=== PATIENT | female | born 1965 | race Caucasian/White ===

== ENCOUNTER 2019-12-24 07:37 | Outpatient (CLI) | payer OTHER, SELFPAY ==
--- NOTE | ~2019-12-24 | MM_ITS ---
EXAMINATION: MM screening umer BI w chuy HISTORY: Screening mammogram TECHNIQUE: Craniocaudal and mediolateral oblique 3-D tomosynthesis images were obtained and synthetic 2-D images were generated. CAD analysis was submitted and interpreted. COMPARISON: 11/23/2018, 11/17/2017, 11/11/2016 bilateral digital screening mammogram examinations BREAST PARENCHYMAL COMPOSITION: There are scattered areas of fibroglandular density. FINDINGS: There is no evidence of suspicious mass, calcification, or architectural distortion to sugg est malignancy in either breast. There has been no suspicious interval change. IMPRESSION: 1. No mammographic evidence of malignancy. 2. Recommend routine screening mammography in one year. BI-RADS Category 1: Negative Reviewed, dictated and finalized at location A.
== END 2019-12-24 07:38 | disposition home or self-care (01) ==
PROVIDERS: PCP Family Medicine; Visit Provider Nurse Practitioner Obstetrics & Gynecology
DX: Z12.31 Encounter for screening mammogram for malignant neoplasm of breast (principal)
CPT/HCPCS: 77063; 77067

== ENCOUNTER 2020-08-14 09:19 | Outpatient (CLI) | payer OTHER, SELFPAY ==
--- NOTE | 2020-08-17 13:57 | WPDPFTINT ---
PFT Interpretation This PFT met all criteria for ATS standards and reproducibility FEV/FVC post bronchodilator 82% FEV1 113% FVC 109% TLC 95% RV 52% RV/TLC 20% DLCO 80% when adjusted for alveolar volume but not adjusted for hemoglobin Flow volume loops were normal Impression: Normal PFT. Clinical correlation is advised.
== END 2020-08-14 09:20 | disposition home or self-care (01) ==
PROVIDERS: PCP Family Medicine; Visit Provider Family Medicine
DX: R06.00 Dyspnea, unspecified (principal)
CPT/HCPCS: 94060; 94726; 94729

== ENCOUNTER 2020-09-18 17:24 | Emergency (ER) | payer OTHER, SELFPAY ==
--- NOTE | ~2020-09-18 | XR_ITS ---
EXAMINATION: XR foot LT min 3V DATE: 09/18/2020 17:58 INDICATION: Bruising at the left great toe and metatarsal. TECHNIQUE: Dorsoplantar, two oblique and lateral views of the left foot were obtained. COMPARISON: None. FINDINGS: Alignment is normal. No fracture. Mild polyarticular osteoarthritis the forefoot at the first metatar sophalangeal and multiple interphalangeal joints. No cortical erosions or periosteal reaction. Small Achilles and plantar calcaneal spurs. Additional small enthesophyte at the tip the lateral malleolus. Soft tissue about the head of the first metatarsal. IMPRESSION: 1. 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 No acute osseous abnormality. Reviewed, dictated and finalized at location A. IMPRESSION: 1. 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 No acute osseous abn ormality.
[2020-09-18 17:40] VITALS: BP 137/82; PULSE 85; RESP 20; TEMP 36.7; O2SAT 100
--- NOTE | 2020-09-18 19:07 | ED.LOWEXIN ---
HPI - Extremity Injury (Lower) General Chief Complaint: Extremity Injury, Lower Stated Complaint: left foot injury Time Seen by Provider: 09/18/20 18:35 Source: patient Mode of arrival: ambulatory Limitations: no limitations History of Present Illness HPI Narrative: This is a 55 year old female that presents to the ER for left foot pain after an injury today. Reports a wooden bench landed on her foot. Reports swelling and pain to the area. Denies decreased range of motion or numbness. Related Data Allergies Allergy/AdvReac Type Severity Reaction Status Date / Time Sulfa (Sulfonamide Allergy Mild hives Verified 09/18/20 17:43 Antibiotics) SULFA Allergy Severe HIVES Uncoded 07/10/20 09:45 Review of Systems Review of Systems: Narrative: CONSTITUTIONAL: Denies fever MUSCULOSKELETAL: Reports joint pain, and myalgia. NEUROLOGIC: Denies numbness All systems reviewed & are unremarkable except as noted in HPI and below PMFSH Past Medical History Medical History (Updated 09/18/20 @ 19:11 by Luh Brito PA-C) Depression Diastasis of rectus abdominis Umbilical hernia Surgical History Surgical History (Updated 07/05/19 @ 13:34 by Svetlana Ortiz, JENNIFER) S/p bilateral carpal tunnel release S/P cholecystectomy S/P hysterectomy Family History Family History Father Diabetes mellitus Family history of coronary artery disease Mother Diabetes mellitus Hypertension Sibling Diabetes mellitus Hypertension Other Cerebrovascular accident Family history of cardiovascular disease Social History Social History (Updated 07/10/20 @ 09:45 by Mary Wayne) Social History: Smoking packs per day: 1.5 Smoking cigarettes per day: 30.0 Years smoked: 10 Smoking pack-years: 15.00 Smoking status: Former smoker Tobacco type: cigarettes Second hand tobacco smoke exposure: No Smoking end date: 05/26/96 Alcohol intake: never Substance use: never Substance use type: does not use Gender identity (if verbalized by the patient): Female Exam Narrative: Exam Narrative: GENERAL: Well-appearing, well-nourished, and in no acute distress. HEAD: Normocephalic, atraumatic. EYES: EOMI. EXTREMITIES: Normal range of motion. Mild bruising to the left foot dorsal surface over the first metatarsal. Normal DP pulses. Normal sensation SKIN: Warm, dry, no rash. NEURO: No focal deficits. Alert and oriented x3. PSYCH: Normal mood and affect Course Vital Signs Vital signs: Vital Signs Temperature 98.1 F 09/18/20 17:40 Pulse Rate 85 09/18/20 17:40 Respiratory Rate 20 09/18/20 17:40 Blood Pressure 137/82 09/18/20 17:40 Pulse Oximetry 100 09/18/20 17:40 Temperature 98.1 F 09/18/20 17:40 Pulse Rate 85 09/18/20 17:40 Respiratory Rate 20 09/18/20 17:40 Blood Pressure 137/82 09/18/20 17:40 Pulse Oximetry 100 09/18/20 17:40 MDM - Extremity Injury (Lower) MDM Narrative Medical decision making narrative: Patient presents the emergency department after a wooden bench falling on her foot today with bruising and pain to the area. Left foot x-rays without acute osseous abnormalities. Patient placed in a postop shoe for comfort. Instructed to rest, ice and take [id number] pain medication as needed. She is to follow-up with primary care doctor. She was given warnings to return to the ER Imaging Data Radiologist's impression: ITS Impressions Foot X-Ray 09/18/20 18:02 IMPRESSION: 1. 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 No acute osseous abnormality. Critical Care Time Critical Care Time Critical Care Time: No Discharge Plan Discharge Clinical Impression: Contusion of foot, left Qualifiers: Encounter type: initial encounter Qualified Code(s): S90.32XA - Contusion of left foot, initial encounter Patient Disposition: Home, Self-Care Condit
[2020-09-18 19:33] VITALS: BP 132/79; PULSE 77; RESP 18; O2SAT 98
== END 2020-09-18 19:34 | disposition home or self-care (01) ==
PROVIDERS: Emergency Provider Emergency Medicine; PCP Family Medicine
DX: S90.32XA Contusion of left foot, initial encounter (principal); W20.8XXA Other cause of strike by thrown, projected or falling object, initial encounter; F32.9 Major depressive disorder, single episode, unspecified
CPT/HCPCS: 73630; 99283

== ENCOUNTER 2021-01-01 07:55 | Outpatient (CLI) | payer OTHER, SELFPAY ==
--- NOTE | ~2021-01-01 | MM_ITS ---
EXAMINATION: MM screening umer BI w chuy HISTORY: Screening TECHNIQUE: Craniocaudal and mediolateral oblique 3-D tomosynthesis images were obtained and synthetic 2-D images were generated. CAD analysis was submitted and interpreted. COMPARISON: Comparison to multiple prior studies sequentially, with oldest reviewed study dated 10/10. BREAST PARENCHYMAL COMPOSITION: There are scattered areas of fibroglandular density. FINDINGS: There is no evidence of suspicious mass, calcification, or architectural distortion to sugg est malignancy in either breast. There has been no suspicious interval change. IMPRESSION: 1. No mammographic evidence of malignancy. 2. Recommend routine screening mammography in one year. BI-RADS Category 1: Negative Reviewed, dictated and finalized at location A.
== END 2021-01-01 07:56 | disposition home or self-care (01) ==
LOC: ANHIMG 07:56
PROVIDERS: PCP Family Medicine; Visit Provider Physician Assistant
DX: Z12.31 Encounter for screening mammogram for malignant neoplasm of breast (principal)
CPT/HCPCS: 77063; 77067

== ENCOUNTER 2021-03-19 00:49 | Day surgery (SDC) | payer OTHER, SELFPAY ==
[2021-03-06 14:41] VITALS: BMI 38.2
[2021-03-19 06:53] VITALS: BP 140/86; PULSE 86; RESP 17; TEMP 36.9; O2SAT 98; BMI 37.5
[2021-03-19] MEDS: LACTATED RINGERS 1,000 ML 150 ML IV CONT (06:56)
--- NOTE | 2021-03-19 07:04 | PM.HPGS ---
History of Present Illness History of Present Illness Consent: Risks, benefits, and alternatives have been discussed and questions answered. Patient agrees to proceed with procedure. Chief complaint: hx of colon polyps, neoplasm screening Narrative: Lydia Block is a 55 year old female referred for colon cancer screening. She had some polyps removed about 5 years ago. Review of Systems Review of Systems: All systems reviewed & are unremarkable except as noted in HPI and below PMFSH Past Medical History Medical History Depression Diastasis of rectus abdominis Umbilical hernia Surgical History Surgical History S/p bilateral carpal tunnel release S/P cholecystectomy S/P hysterectomy Family History Family History Father Diabetes mellitus Family history of coronary artery disease Mother Diabetes mellitus Hypertension Sibling Diabetes mellitus Hypertension Other Cerebrovascular accident Family history of cardiovascular disease Social History Social History Social History: Smoking packs per day: 1.5 Smoking cigarettes per day: 30.0 Years smoked: 10 Smoking pack-years: 15.00 Smoking status: Former smoker Tobacco type: cigarettes Second hand tobacco smoke exposure: No Smoking end date: 05/26/96 Alcohol intake: never Substance use: never Substance use type: does not use Living arrangements: with family Gender identity (if verbalized by the patient): Female Sexual Orientation (if Verbalized by the Patient): Straight or Heterosexual Spiritual care concerns: No Meds Home Medications and Allergies Home Medications Medication Instructions Recorded Confirmed Type paroxetine HCl 20 mg tablet 20 mg PO DAILY #90 tablet 03/13/20 03/19/21 Rx phentermine 30 mg PO DAILY 03/06/21 03/19/21 History Allergies Allergy/AdvReac Type Severity Reaction Status Date / Time Sulfa (Sulfonamide Allergy Mild hives Verified 03/19/21 06:52 Antibiotics) SULFA Allergy Severe HIVES Uncoded 03/19/21 06:52 Vital Signs Vital Signs - 24 hr 03/19/21 06:53 Temperature 36.9 C Pulse Rate 86 Respiratory Rate 17 Blood Pressure 140/86 Pulse Oximetry 98 Exam Resp: Auscultation: clear to auscultation bilaterally Cardio: Rate: regular rate Rhythm: regular rhythm GI: GI Palp: Yes Soft to palpation and No Tenderness to palpation present (GI) Assessment and Plan Assessment and plan (1) Colon cancer screening: Code(s): Z12.11 - Encounter for screening for malignant neoplasm of colon Status: Acute Assessment and Plan: Colonoscopy with possible biopsy or polypectomy or cautery or injection of substances.
--- NOTE | 2021-03-19 07:34 | P.PNAN_ITS ---
Anes - Initial Pre Proc Eval Procedure: Operation Date: 03/19/21 08:00 Proposed Procedures p Screening Colonoscopy - Darrin Nino MD Date/Time: 03/19/21 07:34 Surgeon: Darrin Nino MD Pre Op Diagnosis: hx of colon polyps, neoplasm screening Patient Data Age: 55 Gender: F Height: 1.6 m Weight: 96.3 kg Last Vital Signs Temp 98.5 F 03/19/21 06:53 Pulse 86 03/19/21 06:53 Resp 17 03/19/21 06:53 BP 140/86 03/19/21 06:53 Pulse Ox 98 03/19/21 06:53 Allergies Allergy/AdvReac Type Severity Reaction Status Date / Time Sulfa (Sulfonamide Allergy Mild hives Verified 03/19/21 06:52 Antibiotics) SULFA Allergy Severe HIVES Uncoded 03/19/21 06:52 Home Medications Medication Instructions Recorded Confirmed Type paroxetine HCl 20 mg tablet 20 mg PO DAILY #90 tablet 03/13/20 03/19/21 Rx phentermine 30 mg PO DAILY 03/06/21 03/19/21 History Patient hx anesthesia problems: none Family hx anesthesia problems: none Results Review: All pre-operative results and documents have been reviewed as part of the pre-operative evaluation. [facility] [place] Past Medical History Medical History Depression Diastasis of rectus abdominis Umbilical hernia Surgical History Surgical History S/p bilateral carpal tunnel release S/P cholecystectomy S/P hysterectomy Family History Family History Father Diabetes mellitus Family history of coronary artery disease Mother Diabetes mellitus Hypertension Sibling Diabetes mellitus Hypertension Other Cerebrovascular accident Family history of cardiovascular disease Social History Social History Social History: Smoking packs per day: 1.5 Smoking cigarettes per day: 30.0 Years smoked: 10 Smoking pack-years: 15.00 Smoking status: Former smoker Tobacco type: cigarettes Second hand tobacco smoke exposure: No Smoking end date: 05/26/96 Alcohol intake: never Substance use: never Substance use type: does not use Living arrangements: with family Gender identity (if verbalized by the patient): Female Sexual Orientation (if Verbalized by the Patient): Straight or Heterosexual Spiritual care concerns: No Anes - Eval Final PreProcedure Day of Procedure 03/19/21 07:34 Patient weight: obese Heart: regular rate and rhythm Lungs: clear to auscultation Airway: Mallampati scale Last oral intake: >/= 8 hours ASA classification: II Emergent: no Anesthetic plan: proceed Anesthesia type and monitoring: general GIVS and standard monitoring Results Review: All pre-operative results and documents have been reviewed as part of the pre-operative evaluation. Informed Consent: The patient's anesthetic plan and its attendant risks and benefits were discussed with the patient/family/POA. Questions were solicited and answers provided to the satisfaction of the patient/family/POA.
[2021-03-19 08:24] VITALS: BP 109/67; PULSE 77; RESP 15; O2SAT 97
[2021-03-19 08:34] VITALS: BP 115/67; PULSE 69; RESP 17; O2SAT 98
[2021-03-19 08:44] VITALS: BP 121/77; PULSE 74; RESP 23; O2SAT 98
== END 2021-03-19 08:51 | disposition home or self-care (01) ==
PROVIDERS: PCP Family Medicine; Visit Provider Internal Medicine Gastroenterology
PROC: 0DJD8ZZ Inspection of Lower Intestinal Tract, Via Natural or Artificial Opening Endoscopic (ICD-10-PCS; CPT 45378; principal; 2021-03-19 08:00)
DX: Z12.11 Encounter for screening for malignant neoplasm of colon (principal); D12.5 Benign neoplasm of sigmoid colon; K63.5 Polyp of colon; F32.9 Major depressive disorder, single episode, unspecified; Z87.891 Personal history of nicotine dependence; E66.9 Obesity, unspecified; Z68.37 Body mass index [BMI] 37.0-37.9, adult
CPT/HCPCS: 45380; 45385; 88305; J2001; J2704; J7120

== ENCOUNTER 2022-07-08 08:51 | Outpatient (CLI) | payer OTHER, SELFPAY ==
--- NOTE | ~2022-07-08 | MM_ITS ---
EXAMINATION: MM screening umer BI w chuy HISTORY: Screening mammogram TECHNIQUE: Craniocaudal and mediolateral oblique 3-D tomosynthesis images were obtained and synthetic 2-D images were generated. CAD analysis was submitted and interpreted. COMPARISON: 01/01/2021, 12/24/2019, 11/23/2018 bilateral screening mammogram examinations BREAST PARENCHYMAL COMPOSITION: There are scattered areas of fibroglandular density. FINDINGS: There is no evidence of suspicious mass, calcification, or architectural distortion to sugg est malignancy in either breast. There has been no suspicious interval change. IMPRESSION: 1. No mammographic evidence of malignancy. 2. Recommend routine screening mammography in one year. BI-RADS Category 1: Negative Reviewed, dictated and finalized at location A. ND GENERATOR MANAGER
== END 2022-07-08 08:52 | disposition home or self-care (01) ==
LOC: ANHIMG 08:54
PROVIDERS: PCP Physician Assistant; Visit Provider Physician Assistant
DX: Z12.31 Encounter for screening mammogram for malignant neoplasm of breast (principal)
CPT/HCPCS: 77063; 77067

== ENCOUNTER 2023-11-26 09:29 | Outpatient (CLI) | payer OTHER, SELFPAY ==
--- NOTE | ~2023-11-26 | MM_ITS ---
EXAMINATION: MM screening [facility] BI w chuy HISTORY: Screening mammogram TECHNIQUE: Craniocaudal and mediolateral oblique 3-D tomosynthesis images were obtained and synthetic 2-D images were generated. CAD analysis was submitted and interpreted. COMPARISON: 07/08/2022, 01/01/2021, 12/24/2019 BREAST PARENCHYMAL COMPOSITION:Not Dense. There are scattered areas of fibroglandular density. FINDINGS: No suspicious mass, calcification, or architectural distortion are identified in either chetan ast to suggest malignancy. There has been no suspicious interval change. IMPRESSION: No mammographic evidence of malignancy. Recommend routine screening mammography in one year. BI-RADS Category 1: Negative Reviewed, dictated and finalized at location .
== END 2023-11-26 09:30 | disposition home or self-care (01) ==
LOC: ANHIMG 09:32
PROVIDERS: PCP Nurse Practitioner Family; Visit Provider Nurse Practitioner Family
DX: Z12.31 Encounter for screening mammogram for malignant neoplasm of breast (principal)
CPT/HCPCS: 77063; 77067